=== PATIENT | female | born 1990 | race African-American/Black ===

== ENCOUNTER 2018-02-06 03:55 | Observation (INO) ==
[2018-02-06] MEDS ORDERED: LORazepam 2 MG/1 ML VIAL IV STA (05:15)
[2018-02-06] MEDS ORDERED: AMMONIA INHALANT 1 EACH AMP INH ONE (06:01)
[2018-02-06] MEDS ORDERED: NALOXONE 0.4 MG/ML VIAL IV STA (06:15)
[2018-02-06] MEDS ORDERED: NALOXONE 0.4 MG/ML VIAL ONE (06:16)
[2018-02-06 06:39] LABS: Basophils % 0.3 % (0.0-0.8); Eosinophils # 0.1 10*3/uL (0.0-0.87); Eosinophils % 1.5 % (0.00-10.9); Hematocrit 46.4 VOL% (35.7-47.0); Hemoglobin 15.5 GM/DL (12.0-16.0); Immature Granulocytes % 0.3 %; Immature Granulocytes Absolute 0.03 #; Lymphocytes # 4.8 10*3/uL (1.4-4.0); Mean Corpuscular HGB Conc 33.4 GM/DL (32-36); Mean Corpuscular Hemoglobin 31 PG (27-34); Mean Corpuscular Volume 91.3 FL (87-102); Mean Platelet Volume 9.6 FL (9.6-12.0); Monocytes # 0.7 10*3/uL (0.11-0.8); Monocytes % 7.5 % (1.7-12.7); Neutrophils # 3.7 10*3/uL (1.4-7.4); Neutrophils % 39.4 % (38.7-73.9); Platelet Count 298 T/CUMM (130-400); Red Blood Count 5.08 MC/CUMM (3.8-5.5); Red Cell Distribution Width 13.1 % (9.3-17.3); White Blood Count 9.4 T/CUMM (4-12)
[2018-02-06 06:49] LABS: Apearance,Urine CLEAR (Clear); Bilirubin,Urine Negative (Negative); Blood, Urine Negative (Negative); Glucose,Urine (UA) Negative (Negative); Ketones,Urine Negative (Negative); Mucus,Urine Occasional /LPF (Occasional); Nitrite,Urine Negative (Negative); Protein,Urine Negative; RBC,Urine 1 /HPF (0-4); Squamous Epithelial Cell,Urine Occasional /HPF (0-10); Urine Color Yellow (Yellow); Urine Specific Gravity 1.018 (1.001-1.035); Urine Urobilinogen < 2.0 EU/DL (0.2-1.0); WBC,Urine 3 /HPF (0-6)
[2018-02-06 06:57] LABS: Alanine Aminotransferase 20 U/L (13-56); Alkaline Phosphatase 58 U/L (45-117); Aspartate Amino Transferase 22 U/L (0-37); Blood Urea Nitrogen 7 MG/DL (7-18); Glucose 98 MG/DL (74-106); Osmolality,Calculated 278.3 MOS/KG (273-304); Potassium 3.7 MMOL/L (3.5-5.1); Sodium 141 MMOL/L (136-145); Total Protein 7.2 G/DL (6.4-8.3)
[2018-02-06 06:58] LABS: Barbiturates Screen,Urine Negative (Negative); Benzodiazepines Screen,Urine Negative (Negative); Cannabinoid Screen,Urine Positive (Negative); Opiate Screen,Urine Negative (Negative); Phencyclidine Screen,Urine Negative (Negative)
[2018-02-06] MEDS ORDERED: FLUMAZENIL 1 MG/10 ML VIAL IV ONE (07:32)
[2018-02-06] MEDS ORDERED: FLUMAZENIL 0.5 MG/5 ML VIAL IV ONE (07:33)
[2018-02-06] MEDS ORDERED: ACETAMINOPHEN 325 MG TABLET PO PRN (10:32)
[2018-02-06] MEDS ORDERED: SODIUM CHLORIDE 0.9% 1,000 ML IV SCH (10:32)
[2018-02-06] MEDS ORDERED: ONDANSETRON 4 MG/2 ML VIAL IV PRN (10:32)
[2018-02-06] MEDS: ENOXAPARIN 40 MG/0.4 ML SYRINGE SUBCUT SCH (10:59)
[2018-02-06] MEDS: levETIRAcetam 500 MG TABLET PO SCH ×2 (11:01→20:06)
[2018-02-06] MEDS: PANTOPRAZOLE 40 MG TABLET PO SCH (11:01)
[2018-02-06] MEDS: MULTIVITAMIN (CENTRUM) TABLET PO SCH (12:12)
[2018-02-07 07:16] LABS: Basophils % 0.2 % (0.0-0.8); Eosinophils # 0.2 10*3/uL (0.0-0.87); Eosinophils % 2.5 % (0.00-10.9); Hemoglobin 12.7 GM/DL (12.0-16.0); Immature Granulocytes % 0.3 %; Immature Granulocytes Absolute 0.02 #; Lymphocytes # 3.2 10*3/uL (1.4-4.0); Lymphocytes % 50.2 % (21.3-54.2); Mean Corpuscular HGB Conc 33.4 GM/DL (32-36); Mean Corpuscular Hemoglobin 31 PG (27-34); Mean Corpuscular Volume 91.1 FL (87-102); Monocytes # 0.4 10*3/uL (0.11-0.8); Neutrophils # 2.5 10*3/uL (1.4-7.4); Neutrophils % 39.8 % (38.7-73.9); Platelet Count 237 T/CUMM (130-400); Red Blood Count 4.17 MC/CUMM (3.8-5.5); Red Cell Distribution Width 12.9 % (9.3-17.3); White Blood Count 6.3 T/CUMM (4-12)
[2018-02-07 07:49] LABS: Albumin 3.1 G/DL (3.4-5.0); Bilirubin,Total 0.7 MG/DL (0.2-1.0); Calcium 8.3 MG/DL (8.5-10.1); Potassium 3.9 MMOL/L (3.5-5.1); Total Protein 5.4 G/DL (6.4-8.3)
[2018-02-07 08:08] VITALS: BP 124/76
[2018-02-07] MEDS: levETIRAcetam 500 MG TABLET PO SCH (09:56)
[2018-02-07] MEDS: PANTOPRAZOLE 40 MG TABLET PO SCH (09:56)
[2018-02-07] MEDS: MULTIVITAMIN (CENTRUM) TABLET PO SCH (09:56)
[2018-02-07] MEDS: ENOXAPARIN 40 MG/0.4 ML SYRINGE SUBCUT SCH (09:56)
== END 2018-02-07 11:56 | disposition home or self-care (01) ==
LOC: N.EDINP 03:55 → N.ED 03:55 → N.ICU 15:19 → N.2E 20:37
PROVIDERS: ADMIT Internal Medicine; ATTEND Internal Medicine